=== PATIENT | female | born 1995 | race Caucasian/White ===

== ENCOUNTER 2017-07-01 03:29 | Emergency (ER) | payer SELFPAY ==
[2017-07-01 03:35] VITALS: BP 110/65
[2017-07-01] MEDS ORDERED: AMOXICILLIN TRIHYDRATE 500 MG CAPSULE PO ONE (03:58)
[2017-07-01] MEDS ORDERED: DEXAMETHASONE SOD PHOS INJ 10 MG/1 ML VIAL IM ONE (03:59)
--- NOTE | 2017-07-01 03:59 | ER Document Report ---
ED General - General Chief Complaint: Ear Pain Stated Complaint: EAR PAIN Time Seen by Provider: 07/01/17 03:53 Notes: Patient is a 21-year-old female who presents with complaint of ear pain. Pain is mainly left ear. No fevers. Some mild congestion. No sore throat. Pain is worsened over last 24 hours. She is otherwise healthy and has no other complaints at this time. She is a smoker. TRAVEL OUTSIDE OF THE [place] IN LAST 30 DAYS: No - Related Data Allergies/Adverse Reactions: No Known Allergies Allergy (Unverified 07/01/17 03:32) Past Medical History - Social History Smoking Status: Current Every Day Smoker Frequency of alcohol use: None Family History: Reviewed & Not Pertinent Review of Systems - Review of Systems Notes: My Normal Review Basic REVIEW OF SYSTEMS: CONSTITUTIONAL : Denies fever, chills, or sweats. Denies recent illness. EENT: Left-sided ear pain. CARDIOVASCULAR: Denies chest pain. RESPIRATORY: Denies cough, cold, or chest congestion. Denies shortness of breath, difficulty breathing, or wheezing. GASTROINTESTINAL: Denies abdominal pain. Denies nausea, vomiting, or diarrhea. Denies constipation. Last BM: MUSCULOSKELETAL: Denies neck or back pain or joint pain or swelling. SKIN: Denies rash or skin lesions. NEUROLOGICAL: Denies altered mental status or loss of consciousness. Denies headache. Denies weakness or paralysis or loss of use of either side. Denies problems with gait or speech. Denies sensory or motor loss. ALL OTHER SYSTEMS REVIEWED AND NEGATIVE. Physical Exam - Vital signs Vitals: Temp Pulse Resp BP Pulse Ox 99.2 F 115 H 15 110/65 98 07/01/17 03:34 07/01/17 03:34 07/01/17 03:34 07/01/17 03:34 07/01/17 03:34 - Notes Notes: General Appearance: Well nourished, alert, cooperative, no acute distress, no obvious discomfort. Vitals: reviewed, See vital signs table. Eyes: PERRL, EOMI, Conjuctiva clear Mouth: No decreasd moisture Throat: No tonsillar inflammation, No airway obstruction, No lymphadenopathy Ears: Normal-appearing right tympanic membrane. Left tympanic membrane is red and bulging and painful.. Consistent with otitis media. No redness or swelling over the mastoid. Neck: Supple, no neck tenderness, no neck swelling. Lungs: No wheezing, No rales, No rhonci, No accessory muscle use, good air exchange bilaterally. Heart: Normal rate, Regular rythm, No murmur, no rub Skin: warm, dry, appropriate color, no rash Neuro: speech clear, oriented x 3, normal affect, responds appropriately to questions. Course - Re-evaluation Re-evalutation: 07/01/17 06:15 Patient does have findings consistent with otitis media. She has no other concerning findings on exam. I will place him on amoxicillin. Patient does have a lot of pain and pressure going from the left ear into the left jaw. I will give a dose of Decadron to help reduce some inflammation. No evidence of strep throat or pharyngitis and visual examination. Patient will be discharged home but strongly encouraged to return to ER if she has any swelling on the face or ear, difficulty breathing or swallowing, or she feels unwell. Patient agrees with plan and will be discharged home. Dictation of this chart was performed using voice recognition software; therefore, there may be some unintended grammatical errors. - Vital Signs Vital signs: Temp Pulse Resp BP Pulse Ox 99.2 F 115 H 15 110/65 98 07/01/17 03:34 07/01/17 03:34 07/01/17 03:34 07/01/17 03:34 07/01/17 03:34 Discharge - Discharge Clinical Impression: Otitis media Qualifiers: Otitis media type: unspecified Chronicity: acute Qualified Code(s): H66.90 - Otitis media, unspecified, unspecified ear Condition: Good Disposition: HOME, SELF-CARE Additional Instructions: Your exam shows evidence of an ear infection. We will place you on an antibiotic. Please take the antibiotic for its full course. You should stop the antibiotic if you start having diarrhea return to the ER so can reevaluate you. Please return to the ER immediately if you have fevers, difficulty breathing, difficulty swallowing, or feel unwell. Prescriptions: Amoxicillin Trihydrate [Amoxil 500 mg Capsule] 500 mg PO TID #30 cap
== END 2017-07-01 04:11 | disposition home or self-care (01) ==
LOC: ER 03:29
DX: H66.90 Otitis media, unspecified, unspecified ear (principal); H92.02 Otalgia, left ear; F17.200 Nicotine dependence, unspecified, uncomplicated
CPT/HCPCS: 99282; 96372; J1100